=== PATIENT | male | born 1945 | race Caucasian/White ===

== ENCOUNTER 2017-09-23 14:40 | Day surgery (SDC) | payer MEDICARE, OTHER ==
[~2017-09-23] VITALS: Ht 175.3 cm; Wt 109.6 kg
[2017-09-23] VITALS (8 sets, daily range): BP systolic 120–161; BP diastolic 51–93; PULSE 51–72; TEMP 97.3–98.3
[~2017-09-23 14:40] MED LIST: ALDACTONE 25MG25 M1 PO; FLOMAX 0.40.4 MG/CAP PO; GLUCOPHAGE500 MG/TAB PO; KLOR-CON SPRIN10 MEQ PO; NORVASC 5MG5 MG/TAB PO; PRINZIDE 25 MG-1 TAB PO; PROSCAR 5MG5 MG PO; SENOKOT8.6 MG PO; TOPROL XL100 MG PO; ZOCOR 20MG20 MG PO; ZOLOFT 50MG50 MG PO
[2017-09-23] MEDS ORDERED: TOPROL XL100 MG PO (15:21)
[2017-09-23] MEDS ORDERED: EFFEXOR XR75 MG/CAP PO (15:21)
[2017-09-23] MEDS ORDERED: HCTZ12.5TAB PO (15:22)
[2017-09-23] MEDS ORDERED: PROTONIX 40MG T40 MG PO (15:22)
[2017-09-23] MEDS ORDERED: ASPIRIN 81M81 MG/TA2 PO (15:22)
[2017-09-23 15:36] LABS: HEMATOCRIT 41.5 % (42.0-52.0); HEMOGLOBIN 14.3 g/dl (13.5-18.0)
[2017-09-23 15:45] LABS: CALCIUM 9.5 mg/dL (8.4-10.2); CREATININE, serum 1.38 mg/dL (0.66-1.25)
[2017-09-24] VITALS: BP 126/69; PULSE 51; TEMP 97.6
[2017-09-24 03:45] VITALS: BP 152/70; PULSE 49; TEMP 98.2
[2017-09-24 07:06] VITALS: BP 128/70; PULSE 53; TEMP 98.9
[2017-09-24 11:15] VITALS: BP 140/64; PULSE 53; TEMP 97.9
[2017-09-24 15:16] VITALS: BP 155/79; PULSE 63
== END 2017-09-24 15:35 | disposition home or self-care (01) ==
LOC: SDCO 14:40 → SURG 21:17 → SDCO 09-24 15:35
PROVIDERS: Nurse Anesthetist, Certified Registered
DX: C67.9 Malignant neoplasm of bladder, unspecified (principal); N48.1 Balanitis; N40.1 Benign prostatic hyperplasia with lower urinary tract symptoms; R31.0 Gross hematuria; J44.9 Chronic obstructive pulmonary disease, unspecified; I25.10 Atherosclerotic heart disease of native coronary artery without angina pectoris; E11.9 Type 2 diabetes mellitus without complications; I10 Essential (primary) hypertension; G47.33 Obstructive sleep apnea (adult) (pediatric); E87.6 Hypokalemia; Z90.49 Acquired absence of other specified parts of digestive tract; Z79.82 Long term (current) use of aspirin; Z79.84 Long term (current) use of oral hypoglycemic drugs; Z87.891 Personal history of nicotine dependence; Z86.73 Personal history of transient ischemic attack (TIA), and cerebral infarction without residual deficits; Z83.3 Family history of diabetes mellitus; Z82.49 Family history of ischemic heart disease and other diseases of the circulatory system
CPT/HCPCS: OP; J0690; J2405; J2704; J3010; J3480; J7030; J9280; Q9967

== ENCOUNTER 2017-10-30 08:18 | Inpatient (IN) | payer MEDICARE, OTHER ==
[~2017-10-30] VITALS: Ht 177.8 cm; Wt 99.4 kg
[~2017-10-30 08:18] MED LIST changes: +ASPIRIN 81M81 MG/TA2 PO; +EFFEXOR XR75 MG/CAP PO; +HCTZ12.5TAB PO; +PROTONIX 40MG T40 MG PO
[2017-11-04 09:27] VITALS: BP 192/90; PULSE 58; TEMP 97.7
[2017-11-04] MEDS ORDERED: SEN-O-TABS8.6 MG PO (10:06)
[2017-11-04 11:30] VITALS: BP 170/80
[2017-11-04 11:38] VITALS: BP 159/82; PULSE 59; TEMP 98.1
[2017-11-04 12:23] LABS: BASO # 0.1 (0.0-0.2); EOS # 0.1 (0.0-0.7); EOS % 2.1 % (0-4.0); GRAN # 4.4 (1.4-6.5); GRAN % 70.2 % (42.2-75.2); HEMATOCRIT 42.9 % (42.0-52.0); HEMOGLOBIN 14.2 g/dl (13.5-18.0); LYMPH # 1.1 (1.2-3.4); MEAN CELL VOLUME 81 fl (80.0-100.0); MEAN CORPUSCULAR HEMOGLOBIN 27 pg (27.0-31.0); MEAN CORPUSCULAR HGB CONC 33 g/dl (33.0-37.0); MEAN PLATELET VOLUME 10.1 fl (7.4-10.4); MONO # 0.5 (0.1-0.6); MONO % 8.4 % (1.7-9.3); PLATELET COUNT 134 K/mm3 (130-400); RED BLOOD COUNT 5.27 M/mm3 (4.20-5.60); REDCELL DISTRIBUTION WIDTH-CV 13.2 % (11.5-14.5)
[2017-11-04 12:30] LABS: ALBUMIN 3.8 gm/dL (3.5-5.0); BILIRUBIN,TOTAL 1.5 mg/dL (0.0-1.0); CREATININE, serum 1.43 mg/dL (0.66-1.25); POTASSIUM 3.9 mmol/L (3.4-5.0); TOTAL PROTEIN 6.4 gm/dL (6.4-8.2)
[2017-11-04 16:27] VITALS: BP 152/97; PULSE 64; TEMP 98.4
[2017-11-04 20:00] VITALS: BP 161/89; PULSE 62; TEMP 98.4
[2017-11-05] VITALS (12 sets, daily range): BP systolic 94–158; BP diastolic 60–85; PULSE 61–87; TEMP 97.8–98.8
[2017-11-05 13:33] LABS: BASO % 0.3 % (0.0-2.0); EOS % 0.1 % (0-4.0); GRAN # 11.4 (1.4-6.5); GRAN % 88.1 % (42.2-75.2); HEMOGLOBIN 12.3 g/dl (13.5-18.0); LYMPH # 0.5 (1.2-3.4); MEAN CELL VOLUME 82 fl (80.0-100.0); MEAN CORPUSCULAR HEMOGLOBIN 28 pg (27.0-31.0); MEAN CORPUSCULAR HGB CONC 34 g/dl (33.0-37.0); MEAN PLATELET VOLUME 9.9 fl (7.4-10.4); MONO # 0.9 (0.1-0.6); MONO % 7.1 % (1.7-9.3); PLATELET COUNT 128 K/mm3 (130-400); RED BLOOD COUNT 4.48 M/mm3 (4.20-5.60)
[2017-11-05 13:34] LABS: HEMATOCRIT 36.6 % (42.0-52.0)
[2017-11-05 14:01] LABS: CALCIUM 7.8 mg/dL (8.4-10.2); CREATININE, serum 1.55 mg/dL (0.66-1.25); POTASSIUM 4.2 mmol/L (3.4-5.0)
[2017-11-06] VITALS: BP 104/55; PULSE 86; TEMP 98.8
[2017-11-06 04:00] VITALS: BP 112/68; PULSE 84; TEMP 98.6
[2017-11-06 07:49] LABS: BASO % 0.4 % (0.0-2.0); EOS % 0.1 % (0-4.0); GRAN # 6.2 (1.4-6.5); GRAN % 78.5 % (42.2-75.2); HEMOGLOBIN 10.4 g/dl (13.5-18.0); LYMPH # 0.7 (1.2-3.4); LYMPH % 9.3 % (20.0-51.0); MEAN CELL VOLUME 84 fl (80.0-100.0); MEAN CORPUSCULAR HEMOGLOBIN 27 pg (27.0-31.0); MEAN CORPUSCULAR HGB CONC 33 g/dl (33.0-37.0); MEAN PLATELET VOLUME 10.3 fl (7.4-10.4); MONO # 0.9 (0.1-0.6); MONO % 11.3 % (1.7-9.3); PLATELET COUNT 124 K/mm3 (130-400); REDCELL DISTRIBUTION WIDTH-CV 13.3 % (11.5-14.5)
[2017-11-06 07:56] LABS: CALCIUM 7.3 mg/dL (8.4-10.2); CREATININE, serum 1.85 mg/dL (0.66-1.25); MAGNESIUM 2.2 mg/dL (1.6-2.3); PHOSPHOROUS 4.3 mg/dL (2.5-4.5); POTASSIUM 4.6 mmol/L (3.4-5.0)
[2017-11-06 08:00] VITALS: BP 110/56; PULSE 86; TEMP 98.6
[2017-11-06 12:30] VITALS: BP 96/62; PULSE 87; TEMP 98.3
[2017-11-06 16:42] VITALS: BP 119/65; PULSE 82; TEMP 98.3
[2017-11-06 20:32] VITALS: BP 147/59; PULSE 83; TEMP 99.3
[2017-11-07] VITALS (441 sets, daily range): BP systolic 132–158; BP diastolic 64–115; PULSE 81–112; TEMP 97.8–99.7; O2SAT 85–100
[2017-11-07 04:14] LABS: ARTERIAL BLD GAS O2 SATURATION 83.3 % (92-100); ARTERIAL BLOOD GAS BASE EXCESS -0.2 (-2-2); ARTERIAL BLOOD GAS HCO3 25.6 meq/L (22-26); ARTERIAL BLOOD GAS PCO2 46.5 mmHg (35-45); ARTERIAL BLOOD GAS PO2 49.7 mmHg (80-100); ARTERIAL BLOOD GAS pH 7.36 (7.35-7.45)
[2017-11-07 06:01] LABS: ARTERIAL BLD GAS O2 SATURATION 93.5 % (92-100); ARTERIAL BLD GAS TCO2 CT 28.1; ARTERIAL BLOOD GAS BASE EXCESS 0.1 (-2-2); ARTERIAL BLOOD GAS HCO3 26.6 meq/L (22-26); ARTERIAL BLOOD GAS PCO2 51.3 mmHg (35-45); ARTERIAL BLOOD GAS PO2 72.8 mmHg (80-100); ARTERIAL BLOOD GAS pH 7.33 (7.35-7.45)
[2017-11-07 07:11] LABS: BASO % 0.5 % (0.0-2.0); EOS # 0.1 (0.0-0.7); EOS % 0.6 % (0-4.0); GRAN # 6.4 (1.4-6.5); GRAN % 79.7 % (42.2-75.2); HEMOGLOBIN 10.6 g/dl (13.5-18.0); LYMPH # 0.7 (1.2-3.4); LYMPH % 8.8 % (20.0-51.0); MEAN CELL VOLUME 85 fl (80.0-100.0); MEAN CORPUSCULAR HEMOGLOBIN 27 pg (27.0-31.0); MEAN CORPUSCULAR HGB CONC 32 g/dl (33.0-37.0); MEAN PLATELET VOLUME 10.3 fl (7.4-10.4); MONO # 0.8 (0.1-0.6); MONO % 9.9 % (1.7-9.3); PLATELET COUNT 124 K/mm3 (130-400); RED BLOOD COUNT 3.88 M/mm3 (4.20-5.60); REDCELL DISTRIBUTION WIDTH-CV 13.5 % (11.5-14.5)
[2017-11-07 07:28] LABS: CALCIUM 7.9 mg/dL (8.4-10.2); CREATININE, serum 1.59 mg/dL (0.66-1.25); POTASSIUM 4.5 mmol/L (3.4-5.0)
[2017-11-07 09:20] LABS: ARTERIAL BLD GAS O2 SATURATION 94.8 % (92-100); ARTERIAL BLD GAS TCO2 CT 26.8; ARTERIAL BLOOD GAS BASE EXCESS -0.5 (-2-2); ARTERIAL BLOOD GAS HCO3 25.3 meq/L (22-26); ARTERIAL BLOOD GAS PCO2 46.5 mmHg (35-45); ARTERIAL BLOOD GAS PO2 78.1 mmHg (80-100); ARTERIAL BLOOD GAS pH 7.35 (7.35-7.45)
[2017-11-07 13:21] LABS: ARTERIAL BLD GAS O2 SATURATION 92.3 % (92-100); ARTERIAL BLD GAS TCO2 CT 28.3; ARTERIAL BLOOD GAS BASE EXCESS 0.4 (-2-2); ARTERIAL BLOOD GAS HCO3 26.7 meq/L (22-26); ARTERIAL BLOOD GAS PCO2 50.7 mmHg (35-45); ARTERIAL BLOOD GAS PO2 68.6 mmHg (80-100); ARTERIAL BLOOD GAS pH 7.34 (7.35-7.45)
[2017-11-08] VITALS (805 sets, daily range): BP systolic 138–177; BP diastolic 85–107; PULSE 66–116; TEMP 97.6–98.6; O2SAT 90–100
[2017-11-08 05:20] LABS: GRAN % 86.4 % (42.2-75.2); HEMOGLOBIN 10.3 g/dl (13.5-18.0); LYMPH # 0.4 (1.2-3.4); LYMPH % 9.5 % (20.0-51.0); MEAN CELL VOLUME 85 fl (80.0-100.0); MEAN CORPUSCULAR HEMOGLOBIN 27 pg (27.0-31.0); MEAN CORPUSCULAR HGB CONC 32 g/dl (33.0-37.0); MEAN PLATELET VOLUME 9.6 fl (7.4-10.4); MONO # 0.1 (0.1-0.6); PLATELET COUNT 129 K/mm3 (130-400); RED BLOOD COUNT 3.79 M/mm3 (4.20-5.60); REDCELL DISTRIBUTION WIDTH-CV 13.2 % (11.5-14.5)
[2017-11-08 05:21] LABS: HEMATOCRIT 32.2 % (42.0-52.0)
[2017-11-08 05:33] LABS: ARTERIAL BLD GAS O2 SATURATION 93.6 % (92-100); ARTERIAL BLD GAS TCO2 CT 28.9; ARTERIAL BLOOD GAS BASE EXCESS 1.6 (-2-2); ARTERIAL BLOOD GAS HCO3 27.4 meq/L (22-26); ARTERIAL BLOOD GAS PCO2 48.9 mmHg (35-45); ARTERIAL BLOOD GAS PO2 69.9 mmHg (80-100); ARTERIAL BLOOD GAS pH 7.37 (7.35-7.45)
[2017-11-08 05:33] LABS: CALCIUM 8.4 mg/dL (8.4-10.2); CREATININE, serum 1.41 mg/dL (0.66-1.25); POTASSIUM 4.5 mmol/L (3.4-5.0)
[2017-11-08 12:17] LABS: ALBUMIN 3.4 gm/dL (3.5-5.0); BILIRUBIN UNCONJUGATED 0.8 mg/dL (0.0-1.1); BILIRUBIN,DIRECT 0.3 mg/dL (0.0-0.4); BILIRUBIN,TOTAL 1.1 mg/dL (0.0-1.0); TOTAL PROTEIN 6.5 gm/dL (6.4-8.2)
[2017-11-09] VITALS (695 sets, daily range): BP systolic 156–178; BP diastolic 77–107; PULSE 73–106; TEMP 97.5–98.1; O2SAT 48–100
[2017-11-09 05:21] LABS: GRAN # 5.3 (1.4-6.5); GRAN % 90.6 % (42.2-75.2); HEMOGLOBIN 10.6 g/dl (13.5-18.0); LYMPH # 0.3 (1.2-3.4); LYMPH % 5.8 % (20.0-51.0); MEAN CELL VOLUME 81 fl (80.0-100.0); MEAN CORPUSCULAR HEMOGLOBIN 28 pg (27.0-31.0); MEAN CORPUSCULAR HGB CONC 34 g/dl (33.0-37.0); MEAN PLATELET VOLUME 9.8 fl (7.4-10.4); MONO # 0.2 (0.1-0.6); MONO % 2.9 % (1.7-9.3); PLATELET COUNT 152 K/mm3 (130-400); RED BLOOD COUNT 3.86 M/mm3 (4.20-5.60); REDCELL DISTRIBUTION WIDTH-CV 13.4 % (11.5-14.5)
[2017-11-09 05:32] LABS: ALBUMIN 3.4 gm/dL (3.5-5.0); CALCIUM 8.7 mg/dL (8.4-10.2); CREATININE, serum 1.28 mg/dL (0.66-1.25); HEMATOCRIT 31.4 % (42.0-52.0); POTASSIUM 4.2 mmol/L (3.4-5.0); TOTAL PROTEIN 6.4 gm/dL (6.4-8.2)
[2017-11-09 08:55] LABS: ARTERIAL BLD GAS O2 SATURATION 93.3 % (92-100); ARTERIAL BLD GAS TCO2 CT 28.7; ARTERIAL BLOOD GAS BASE EXCESS 3.1 (-2-2); ARTERIAL BLOOD GAS HCO3 27.5 meq/L (22-26); ARTERIAL BLOOD GAS PCO2 41.2 mmHg (35-45); ARTERIAL BLOOD GAS PO2 68.9 mmHg (80-100); ARTERIAL BLOOD GAS pH 7.44 (7.35-7.45)
[2017-11-10] VITALS (175 sets, daily range): BP systolic 160–202; BP diastolic 37–120; PULSE 71–130; TEMP 97–98.2; O2SAT 56–100
[2017-11-10 05:40] LABS: HEMATOCRIT 37.3 % (42.0-52.0); HEMOGLOBIN 12.2 g/dl (13.5-18.0); MEAN CELL VOLUME 83 fl (80.0-100.0); MEAN CORPUSCULAR HEMOGLOBIN 27 pg (27.0-31.0); MEAN CORPUSCULAR HGB CONC 33 g/dl (33.0-37.0); MEAN PLATELET VOLUME 9.8 fl (7.4-10.4); PLATELET COUNT 191 K/mm3 (130-400); RED BLOOD COUNT 4.48 M/mm3 (4.20-5.60); REDCELL DISTRIBUTION WIDTH-CV 13.8 % (11.5-14.5)
[2017-11-10 05:51] LABS: ALBUMIN 3.6 gm/dL (3.5-5.0); BILIRUBIN,TOTAL 1.4 mg/dL (0.0-1.0); CALCIUM 8.9 mg/dL (8.4-10.2); CREATININE, serum 1.21 mg/dL (0.66-1.25); MAGNESIUM 2.5 mg/dL (1.6-2.3); POTASSIUM 3.8 mmol/L (3.4-5.0); TOTAL PROTEIN 6.7 gm/dL (6.4-8.2)
[2017-11-10 06:23] LABS: BAND 1 % (0-10); LYMPHOCYTE 3 % (20.0-51.0); NEUTROPHILS 94 % (42.0-75.2)
[2017-11-10 06:24] LABS: ANISOCYTOSIS 1+; HYPOCHROMIA 3+; PLATELET ESTIMATE NORMAL (NORMAL)
[2017-11-10 11:10] LABS: URINE PROTEIN:CREAT RATIO 0.74 (0.00-0.14)
[2017-11-10 11:15] LABS: BUDDING YEAST Present /hpf; MUCOUS Present /lpf; PH 6 (5-8); SQUAMOUS EPITHELIAL 0-2 /hpf; URINE APPEARANCE Hazy; URINE BACTERIA Rare /hpf; URINE BILIRUBIN Negative (NEGATIVE); URINE BLOOD 3+ (NEGATIVE); URINE COLOR Yellow; URINE GLUCOSE 3+ (NEGATIVE); URINE KETONE Negative (NEGATIVE); URINE LEUKOCYTE ESTERASE 3+ (NEGATIVE); URINE NITRATE Negative (NEGATIVE); URINE PROTEIN(semi-quant) 1+ (NEGATIVE); URINE RBC >50 /hpf; URINE UROBILINOGEN Negative (NEGATIVE)
[2017-11-10 12:31] LABS: COLLECTION METHOD UROSTOMY
[2017-11-10 17:46] LABS: CALCIUM 8.8 mg/dL (8.4-10.2); CREATININE, serum 1.17 mg/dL (0.66-1.25); POTASSIUM 3.7 mmol/L (3.4-5.0)
[2017-11-11] VITALS (751 sets, daily range): BP systolic 140–180; BP diastolic 73–105; PULSE 74–120; TEMP 97.5–101.5; O2SAT 66–100
[2017-11-11 05:15] LABS: ALBUMIN 3.1 gm/dL (3.5-5.0); BILIRUBIN,TOTAL 1.1 mg/dL (0.0-1.0); CALCIUM 8.5 mg/dL (8.4-10.2); CREATININE, serum 1.14 mg/dL (0.66-1.25); MAGNESIUM 2.6 mg/dL (1.6-2.3); POTASSIUM 3.5 mmol/L (3.4-5.0); TOTAL PROTEIN 5.9 gm/dL (6.4-8.2)
[2017-11-11 13:08] LABS: GLUCOSE,CSF 138 mg/dL (40-70); TOTAL PROTEIN,CSF 74 mg/dL (15-45)
[2017-11-11 13:35] LABS: CSF APPEARANCE CLEAR; CSF COLOR COLORLESS
[2017-11-11 14:03] LABS: CSF MONONUCLEAR 100 % (70-100); CSF POLYMORPHONUCLEAR 0 % (0-6); CSF RBC 0 /mm3 (0-0)
[2017-11-11 16:55] LABS: CALCIUM 8.7 mg/dL (8.4-10.2); CREATININE, serum 1.09 mg/dL (0.66-1.25); POTASSIUM 3.6 mmol/L (3.4-5.0)
[2017-11-12] VITALS (703 sets, daily range): BP systolic 110–178; BP diastolic 78–100; PULSE 99–114; TEMP 97.7–101.3; O2SAT 34–100
[2017-11-12 05:21] LABS: ALBUMIN 3.2 gm/dL (3.5-5.0); BILIRUBIN,TOTAL 1.8 mg/dL (0.0-1.0); CALCIUM 8.4 mg/dL (8.4-10.2); CREATININE, serum 1.17 mg/dL (0.66-1.25); MAGNESIUM 2.5 mg/dL (1.6-2.3); POTASSIUM 3.5 mmol/L (3.4-5.0)
[2017-11-12 06:51] LABS: HEMATOCRIT 36.3 % (42.0-52.0); HEMOGLOBIN 11.9 g/dl (13.5-18.0); MEAN CELL VOLUME 82 fl (80.0-100.0); MEAN CORPUSCULAR HEMOGLOBIN 27 pg (27.0-31.0); MEAN CORPUSCULAR HGB CONC 33 g/dl (33.0-37.0); PLATELET COUNT 164 K/mm3 (130-400); RED BLOOD COUNT 4.42 M/mm3 (4.20-5.60); REDCELL DISTRIBUTION WIDTH-CV 13.9 % (11.5-14.5)
[2017-11-12 07:08] LABS: BAND 6 % (0-10); LYMPHOCYTE 2 % (20.0-51.0); NEUTROPHILS 90 % (42.0-75.2)
[2017-11-12 07:09] LABS: HYPOCHROMIA 1+; PLATELET ESTIMATE NORMAL (NORMAL)
[2017-11-13] VITALS (911 sets, daily range): BP systolic 96–201; BP diastolic 63–109; PULSE 82–159; TEMP 97.3–99.1; O2SAT 50–100
[2017-11-13 06:04] LABS: HEMOGLOBIN 10.8 g/dl (13.5-18.0); MEAN CORPUSCULAR HEMOGLOBIN 27 pg (27.0-31.0); MEAN CORPUSCULAR HGB CONC 31 g/dl (33.0-37.0); MEAN PLATELET VOLUME 9.9 fl (7.4-10.4); PLATELET COUNT 137 K/mm3 (130-400); RED BLOOD COUNT 4.03 M/mm3 (4.20-5.60); REDCELL DISTRIBUTION WIDTH-CV 14.1 % (11.5-14.5)
[2017-11-13 06:08] LABS: INR 1.2 (0.8-3.0); PROTHROMBIN TIME 14.1 SECONDS (9.7-12.8)
[2017-11-13 06:12] LABS: HEMATOCRIT 35.3 % (42.0-52.0)
[2017-11-13 06:13] LABS: MEAN CELL VOLUME 88 fl (80.0-100.0)
[2017-11-13 07:00] LABS: BAND 4 % (0-10); LYMPHOCYTE 11 % (20.0-51.0); NEUTROPHILS 83 % (42.0-75.2); PLATELET ESTIMATE NORMAL (NORMAL)
[2017-11-13 07:57] LABS: ALBUMIN 3.1 gm/dL (3.5-5.0); BILIRUBIN,TOTAL 1.3 mg/dL (0.0-1.0); CALCIUM 8.4 mg/dL (8.4-10.2); CREATININE, serum 1.29 mg/dL (0.66-1.25); POTASSIUM 3.8 mmol/L (3.4-5.0); TOTAL PROTEIN 5.9 gm/dL (6.4-8.2)
[2017-11-13 10:39] LABS: MAGNESIUM 2.7 mg/dL (1.6-2.3); PHOSPHOROUS 3.6 mg/dL (2.5-4.5)
[2017-11-13 10:46] LABS: PRE ALBUMIN 24.6 mg/dL (17.6-36.0)
[2017-11-13 17:29] LABS: CALCIUM 8.4 mg/dL (8.4-10.2); CREATININE, serum 1.17 mg/dL (0.66-1.25); MAGNESIUM 2.4 mg/dL (1.6-2.3); POTASSIUM 3.8 mmol/L (3.4-5.0)
[2017-11-14] VITALS (741 sets, daily range): BP systolic 77–111; BP diastolic 49–77; PULSE 100–148; TEMP 97.6–97.7; O2SAT 40–100
[2017-11-14 05:33] LABS: HEMATOCRIT 37.4 % (42.0-52.0); HEMOGLOBIN 11.6 g/dl (13.5-18.0); MEAN CELL VOLUME 87 fl (80.0-100.0); MEAN CORPUSCULAR HEMOGLOBIN 27 pg (27.0-31.0); MEAN CORPUSCULAR HGB CONC 31 g/dl (33.0-37.0); MEAN PLATELET VOLUME 9.9 fl (7.4-10.4); PLATELET COUNT 148 K/mm3 (130-400); RED BLOOD COUNT 4.31 M/mm3 (4.20-5.60); REDCELL DISTRIBUTION WIDTH-CV 14.4 % (11.5-14.5)
[2017-11-14 05:45] LABS: BILIRUBIN,TOTAL 1.3 mg/dL (0.0-1.0); CALCIUM 8.4 mg/dL (8.4-10.2); CREATININE, serum 1.36 mg/dL (0.66-1.25); MAGNESIUM 2.5 mg/dL (1.6-2.3); PHOSPHOROUS 2.3 mg/dL (2.5-4.5); POTASSIUM 3.7 mmol/L (3.4-5.0); TOTAL PROTEIN 5.5 gm/dL (6.4-8.2)
[2017-11-14 06:00] LABS: BAND 4 % (0-10); LYMPHOCYTE 3 % (20.0-51.0); NEUTROPHILS 89 % (42.0-75.2); PLATELET ESTIMATE NORMAL (NORMAL)
[2017-11-15] VITALS (121 sets, daily range): O2SAT 30–98
== END 2017-11-15 07:45 | disposition expired | DRG 653 ==
LOC: ICU 11-04 09:09 → SURG 11-04 09:09 → ICU 11-07 07:39 → IMCU 11-11 11:02 → ICU 11-15 07:45
PROVIDERS: Hospitalist; Internal Medicine; Internal Medicine Critical Care Medicine; Nurse Practitioner Family; Physician Assistant; Psychiatry & Neurology Neurology; Registered Nurse; Urology
PROC: 0TTB0ZZ Resection of Bladder, Open Approach (ICD-10-PCS; 2017-11-05)
PROC: 07TC0ZZ Resection of Pelvis Lymphatic, Open Approach (ICD-10-PCS; 2017-11-05)
PROC: 0T1 Urinary System, Bypass (ICD-10-PCS; 2017-11-05)
PROC: 0VT00ZZ Resection of Prostate, Open Approach (ICD-10-PCS; principal; 2017-11-05 07:30)
PROC: 009U3ZX Drainage of Spinal Canal, Percutaneous Approach, Diagnostic (ICD-10-PCS; 2017-11-11)
DX: C67.9 Malignant neoplasm of bladder, unspecified (principal); J96.00 Acute respiratory failure, unspecified whether with hypoxia or hypercapnia; G93.41 Metabolic encephalopathy; B37.49 Other urogenital candidiasis; Z66 Do not resuscitate; I12.9 Hypertensive chronic kidney disease with stage 1 through stage 4 chronic kidney disease, or unspecified chronic kidney disease; F32.9 Major depressive disorder, single episode, unspecified; N40.0 Benign prostatic hyperplasia without lower urinary tract symptoms; J44.9 Chronic obstructive pulmonary disease, unspecified; E78.5 Hyperlipidemia, unspecified; F10.21 Alcohol dependence, in remission; N18.2 Chronic kidney disease, stage 2 (mild); I25.10 Atherosclerotic heart disease of native coronary artery without angina pectoris; I48.91 Unspecified atrial fibrillation; E11.22 Type 2 diabetes mellitus with diabetic chronic kidney disease; E66.01 Morbid (severe) obesity due to excess calories; Z68.34 Body mass index [BMI] 34.0-34.9, adult; Z92.21 Personal history of antineoplastic chemotherapy; Z85.038 Personal history of other malignant neoplasm of large intestine; Z87.891 Personal history of nicotine dependence; Z86.73 Personal history of transient ischemic attack (TIA), and cerebral infarction without residual deficits
CPT/HCPCS: 99222; 99232-AI; 99233-AI; A4216; A4217; A9284; C1751; C2617; G0463; J0133; J0348; J0360; J0610; J0690; J0694; J1170; J1200; J1630; J1650; J1815; J1940; J2060; J2250; J2270; J2310; J2405; J2543; J2704; J2765; J2920; J2930; J3010; J3411; J3480; J3486; J7030; J7040; J7050; J7060; J7070; J7120; Q9967